=== PATIENT | female | born 1950 | race Caucasian/White ===

== ENCOUNTER 2018-05-18 09:31 | Inpatient (IN) | payer OTHER, BC ==
[2018-05-18] MEDS ORDERED: NS 1,000 ML IV ONE (09:44)
--- NOTE | 2018-05-18 09:49 | EDPHY ---
H & P Time Seen by Provider: 05/18/18 09:38 HPI/ROS: CHIEF COMPLAINT: Syncope HISTORY OF PRESENT ILLNESS: The patient is a 67-year-old female with no significant past medical history who comes to the emergency department after syncopal event. She states that she woke up this morning and had mild low back pain radiating to her left leg. She states that this is not very unusual for her and that she has a history of bulging discs. She eventually got up and took a hot shower. While she was in the shower she began to feel lightheaded. She turned the water off and then woke up lying in the tub. She got out of the tub and then woke up again lying on the ground. She thinks that she fainted twice. She then walked to her bedroom and laid on her bed for about an hour. She continued to feel lightheaded so she walked to her son's room and asked him to call 911. She continued to feel lightheaded while walking. She states that she feels better when lying down. She denies chest pain or shortness of breath. No recent fevers or illness. She reports she has had a dry cough for the last 3 weeks. No heavy bleeding. No diarrhea. No vomiting. She has been eating and drinking normally. She is from [place]. When paramedics arrived her blood pressure was 40 over palp. They gave her 500 cc bolus and it did not improve. It then started an epi drip and her blood pressure rapidly increased to 100/50 which is her baseline. It was then discontinued. She maintains his blood pressure now states that she feels normal. She is currently asymptomatic. she does report frequent episodes of lightheadedness when standing for too long or standing abruptly. Her son states that he has the same. Severity: Severe Modifying factors: Above REVIEW OF SYSTEMS: Constitutional: denies: chills, fever, recent illness, recent injury EENTM: denies: blurred vision, double vision, nose congestion Respiratory: denies: cough, shortness of breath Cardiac: See HPI Gastrointestinal/Abdominal: denies: abdominal pain, diarrhea, nausea, vomiting, blood streaked stools Genitourinary: denies: dysuria, frequency, hematuria, pain Musculoskeletal: denies: joint pain, muscle pain Skin: denies: lesions, rash, jaundice, bruising Neurological: denies: headache, numbness, paresthesia, tingling, dizziness, weakness Hematologic/Lymphatic: denies: blood clots, easy bleeding, easy bruising Immunologic/allergic: denies: HIV/AIDS, transplant 10 systems reviewed and negative except as noted EXAM: GENERAL: Well-appearing, well-nourished and in no acute distress. HEAD: Atraumatic, normocephalic. EYES: Pupils equal round and reactive to light, extraocular movements intact, sclera anicteric, conjunctiva are normal. ENT: TMs normal, nares patent, oropharynx clear without exudates. Moist mucous membranes. NECK: Normal range of motion, supple without lymphadenopathy or JVD. LUNGS: Breath sounds clear to auscultation bilaterally and equal. No wheezes rales or rhonchi. HEART: Regular rate and rhythm without murmurs, rubs or gallops. ABDOMEN: Soft, nontender, normoactive bowel sounds. No guarding, no rebound. No masses appreciated. BACK: No CVA tenderness, no spinal tenderness, step-offs or deformities EXTREMITIES: Normal range of motion, no pitting or edema. No clubbing or cyanosis. NEUROLOGICAL: Cranial nerves II through XII grossly intact. Normal speech, normal gait. 5/5 strength, normal movement in all extremities, normal sensation , normal reflexes PSYCH: Normal mood, normal affect. SKIN: Warm, dry, normal turgor, no visible rashes or lesions. Source: Patient, EMS Exam Limitations: No limitations - Medical/Surgical History Hx Asthma: No Hx Chronic Respiratory Disease: No Hx Diabetes: No Hx Cardiac Disease: No Hx Renal Disease: No Hx Cirrhosis: No Hx Alcoholism: No Hx HIV/AIDS: No Hx Splenectomy or Spleen Trauma: No - Family History Significant Family History: No pertinent family hx - Social History Smoking Status: Never smoked Alcohol Use: Sober Drug Use: None Constitutional: Initial Vital Signs Temperature (C) 36.3 C 05/18/18 09:40 Heart Rate 67 05/18/18 09:40 Respiratory Rate 16 05/18/18 09:40 Blood Pressure 102/64 05/18/18 09:40 O2 Sat (%) 92 05/18/18 09:40 O2 Delivery Mode Room Air Allergies/Adverse Reactions: No Known Allergies Allergy (Verified 05/18/18 10:30) Home Medications: Medication Instructions Recorded Herbals/Supplements -Info Only 1 ea PO DAILY 05/18/18 [place]-3 Fatty Acids [Fish Oil 1000 1,000 mg PO DAILY 05/18/18 mg (*)] Medical Decision Making - Diagnostics EKG Interpretation: An EKG obtained and was read and documented in trace view. Please see trace view for full reading and report. Sinus rhythm, no acute ischemic changes Imaging Results: Imaging Impressions Abdomen/Pelvis CTA 05/18/18 09:45 Impression: 1. Minimal atherosclerotic abdominal aorta without aneurysm or dissection. 2. No abdominal or pelvic bowel obstruction or significant adenopathy. 3. Sigmoid diverticulosis without diverticulitis. Findings and recommendations discussed with Emergency Department physician, Dr. Leon Gipson at 1125 hours on May 18, 2018. Final report concurs with initial preliminary interpretation. Chest/Thorax CTA 05/18/18 09:45 Impression: 1. No aortic aneurysm or dissection. 2. Right middle lobe 4-mm nonspecific noncalcified pulmonary nodule, for which follow-up noncontrast CT chest is recommended in one year. 3. No acute pulmonary disease. [employer] RECOMMENDATIONS For Follow Up and Management of Solid Nodules Smaller Than [address] Low Risk Patients (minimal or absent history of smoking and of other known risk factors) Less than 6 mm ---- no follow up required, unless upper lobes then follow up at 12 months 6-8 mm -------initial follow up CT at 6-12 months, then at 18-24 months if no change >8 mm -------Consider follow up CT at around 3, 9, and 24 months, dynamic contrast-enhanced CT, PET, and/or biopsy. High Risk Patients (history of smoking or of other known risk factors) Less than 6 mm------follow up CT at 12 months; if unchanged, no further follow up 6-8 mm ------ initial follow up CT at 6-12 months, then at 18-24 months if no change >8 mm ------ Consider follow up CT at around 3, 9, and 24 months, dynamic contrast-enhanced CT, PET, and/or biopsy. Note: Nonsolid (groundglass) or partially solid nodules will require a longer follow up to exclude indolent adenocarcinoma. Findings and recommendations discussed with Emergency Department physician, Dr. Leon Gipson at 1130 hours on May 18, 2018. Final report concurs with initial preliminary interpretation. Imaging: Discussed imaging studies w/ call or contact centre team leader Radiologist ED Course/Re-evaluation: I discussed the case with Namita from hospital service who will accept to step- down. CT still pending. Differential Diagnosis: Partial list of the Differential diagnosis considered include but were not limited to; syncope, hypotension, arrhythmia, dissection, aneurysm and although unlikely based on the history and physical exam, I also considered hemorrhage, dehydration, electrolyte abnormality, acute coronary disease. Critical Care Time: Critical care time spent by me, Dr. Gipson exclusive with this patient was 35 minutes, exclusive of the PA time exclusive of procedures. The organ system that was at risk was cardiovascular and I gave IV fluids, consultation and admission, testing to prevent worsening of the patient's condition - Data Points Laboratory Results: Laboratory Results 05/18/18 09:45 05/18/18 09:45 05/18/18 05/18/18 05/18/18 09:55 09:46 09:45 WBC RBC Hgb Hct MCV MCH MCHC RDW Plt Count MPV Neut % (Auto) Lymph % (Auto) [place] % (Auto) Eos % (Auto) Baso % (Auto) Nucleat RBC Rel Count Absolute Neuts (auto) Absolute Lymphs (auto) Absolute Monos (auto) Absolute Eos (auto) Absolute Basos (auto) Absolute Nucleated RBC Immature Gran % Immature Gran # PT 14.0 SEC SEC (12.0-15.0) INR 1.06 (0.83-1.16) APTT 26.3 SEC SEC (23.0-38.0) Sodium 140 mEq/L mEq/L (135-145) Potassium 4.4 mEq/L mEq/L (3.3-5.0) Chloride 107 mEq/L mEq/L (97-110) Carbon Dioxide 22 mEq/l mEq/l (22-31) Anion Gap 11 mEq/L mEq/L (8-16) BUN 21 mg/dL mg/dL (7-23) Creatinine 0.7 mg/dL mg/dL (0.6-1.0) Estimated GFR > 60 Glucose 117 mg/dL H mg/dL (70-100) Calcium 9.3 mg/dL mg/dL (8.5-10.4) POC Troponin I 0.01 ng/mL ng/mL (0.00-0.08) 05/18/18 09:45 WBC 19.33 10^3/uL H 10^3/uL (3.80-9.50) RBC 4.25 10^6/uL 10^6/uL (4.18-5.33) Hgb 12.5 g/dL L g/dL (12.6-16.3) Hct 38.2 % % (38.0-47.0) MCV 89.9 fL fL (81.5-99.8) MCH 29.4 pg pg (27.9-34.1) MCHC 32.7 g/dL g/dL (32.4-36.7) RDW 13.3 % % (11.5-15.2) Plt Count 311 10^3/uL 10^3/uL (150-400) MPV 9.1 fL fL (8.7-11.7) Neut % (Auto) 81.5 % H % (39.3-74.2) Lymph % (Auto) 10.8 % L % (15.0-45.0) Granite % (Auto) 6.6 % % (4.5-13.0) Eos % (Auto) 0.3 % L % (0.6-7.6) Baso % (Auto) 0.3 % % (0.3-1.7) Nucleat RBC Rel Count 0.0 % % (0.0-0.2) Absolute Neuts (auto) 15.76 10^3/uL H 10^3/uL (1.70-6.50) Absolute Lymphs (auto) 2.08 10^3/uL 10^3/uL (1.00-3.00) Absolute Monos (auto) 1.28 10^3/uL H 10^3/uL (0.30-0.80) Absolute Eos (auto) 0.05 10^3/uL 10^3/uL (0.03-0.40) Absolute Basos (auto) 0.06 10^3/uL 10^3/uL (0.02-0.10) Absolute Nucleated RBC 0.00 10^3/uL 10^3/uL (0-0.01) Immature Gran % 0.5 % % (0.0-1.1) Immature Gran # 0.10 10^3/uL 10^3/uL (0.00-0.10) PT INR APTT Sodium Potassium Chloride Carbon Dioxide Anion Gap BUN Creatinine Estimated GFR Glucose Calcium POC Troponin I Medications Given: Sodium Chloride (Ns) 1,000 mls @ 125 mls/hr IV CONT JOSIAH Stop: 11/14/18 11:59 Last Admin: 05/18/18 12:31 Dose: 1,000 mls Discontinued Medications Sodium Chloride (Ns) 1,000 mls @ 0 mls/hr IV EDNOW ONE; Wide Open PRN Reason: Protocol Stop: 05/18/18 09:45 Last Admin: 05/18/18 10:25 Dose: 1,000 mls Point of Care Test Results: Chemistry 05/18/18 09:46 POC Troponin I 0.01 ng/mL ng/mL (0.00-0.08) Departure - Departure Disposition: [facility] Inpatient Acute Clinical Impression: Syncope and collapse Hypotension Qualifiers: Hypotension type: unspecified hypotension type Qualified Code(s): I95.9 - Hypotension, unspecified Condition: Fair
[2018-05-18 09:51] LABS: PLATELET COUNT 311 10^3/uL (150-400)
[2018-05-18 10:11] LABS: INR 1.06 (0.83-1.16)
[2018-05-18] MEDS ORDERED: IOPAMIDOL (ISOVUE 370) 100 ML BTL IV ONE (10:46)
[2018-05-18] MEDS ORDERED: NS 1,000 ML IV SCH (12:00)
--- NOTE | 2018-05-18 12:20 | CPEKG ---
Test Reason : OPEN Blood Pressure : / mmHG Vent. Rate : 068 BPM Atrial Rate : 069 BPM P-R Int : 151 ms QRS Dur : 085 ms QT Int : 410 ms P-R-T Axes : 069 045 044 degrees QTc Int : 437 ms Sinus rhythm Confirmed by Leon Gipson ([id number]) on 05/18/2018 12:19:56 PM Referred By: Confirmed By:Leon Gipson
--- NOTE | 2018-05-18 14:10 | PDGENHP ---
History and Physical - Chief Complaint syncope - History of Present Illness 67 yo female who is otherwise healthy presents to ED after 2 syncopal events at home. [place] from [place] and arrived one month ago. She awoke this morning with an ache in her low back. This has happened before and she tried some positional changes. She went to the bathroom and felt dizzy. She also noticed her left leg was quite swollen and painful, worse with ambulation. While in the shower, she felt so lightheaded, she realized she was going to pass out and turned the water off while starting to lower herself to the ground. She tried to step out of the shower, but woke up on the floor of the bathroom. She again got up, walked down the saxena, still dizzy, made it to her bed. Resting in bed, she was not dizzy and had no chest pain or shortness of breath. She eventually asked her son to call EMS, who found her systolic blood pressure to be in the 40's. She was started on an Epi drip and brought to the ED, where she was easily titrated off Epi and remained normotensive after a fluid bolus. She was mildly orthostatic in the ED. CTA was negative for PE or dissection. She has no h/o malignancy and no family history of clotting disorder. She was admitted for further management. On the PCU, u/s of LLE revealed extensive DVT into the iliac veins and pelvis. IR is consulted and she will undergo thrombolysis and then transfer to the ICU. History Information - Allergies/Home Medication List Allergies/Adverse Reactions: No Known Allergies Allergy (Verified 05/18/18 10:30) Home Medications: Herbals/Supplements -Info Only 1 ea PO DAILY 05/18/18 [Last Taken Unknown] [place]-3 Fatty Acids [Fish Oil 1000 mg (*)] 1,000 mg PO DAILY 05/18/18 [Last Taken Unknown] I have personally reviewed and updated: family history, medical history, social history, surgical history - Past Medical History no pertinent PMH - Surgical History Reports: no pertinent surgical hx - Family History Positive for: non-pertinent - Social History Smoking Status: Never smoked Alcohol Use: Sober Drug Use: None Additional social history: Lives in [place], visiting her 3 sons who live locally Review of Systems Review of Systems: ROS: 10pt was reviewed & negative except for what was stated in HPI & below Physical Exam Physical Exam: Temp Pulse Resp BP Pulse Ox 36.7 C 67 16 110/65 97 05/18/18 13:12 05/18/18 13:12 05/18/18 13:12 05/18/18 13:12 05/18/18 13:12 Constitutional: no apparent distress Eyes: PERRL Ears, Nose, Mouth, Throat: moist mucous membranes Cardiovascular: regular rate and rhythym, no murmur, rub, or gallop Respiratory: no respiratory distress, clear to auscultation Gastrointestinal: normoactive bowel sounds, soft, non-tender abdomen Skin: warm Musculoskeletal: other (LLE with extensive edema, no erythema) Neurologic: AAOx3 Psychiatric: interacting appropriately Lab Data & Imaging Review 05/18/18 09:45 05/18/18 09:45 WBC 19.33 10^3/uL (3.80-9.50) H 05/18/18 09:45 RBC 4.25 10^6/uL (4.18-5.33) 05/18/18 09:45 Hgb 12.5 g/dL (12.6-16.3) L 05/18/18 09:45 Hct 38.2 % (38.0-47.0) 05/18/18 09:45 MCV 89.9 fL (81.5-99.8) 05/18/18 09:45 MCH 29.4 pg (27.9-34.1) 05/18/18 09:45 MCHC 32.7 g/dL (32.4-36.7) 05/18/18 09:45 RDW 13.3 % (11.5-15.2) 05/18/18 09:45 Plt Count 311 10^3/uL (150-400) 05/18/18 09:45 MPV 9.1 fL (8.7-11.7) 05/18/18 09:45 Neut % (Auto) 81.5 % (39.3-74.2) H 05/18/18 09:45 Lymph % (Auto) 10.8 % (15.0-45.0) L 05/18/18 09:45 [place] % (Auto) 6.6 % (4.5-13.0) 05/18/18 09:45 Eos % (Auto) 0.3 % (0.6-7.6) L 05/18/18 09:45 Baso % (Auto) 0.3 % (0.3-1.7) 05/18/18 09:45 Nucleat RBC Rel Count 0.0 % (0.0-0.2) 05/18/18 09:45 Absolute Neuts (auto) 15.76 10^3/uL (1.70-6.50) H 05/18/18 09:45 Absolute Lymphs (auto) 2.08 10^3/uL (1.00-3.00) 05/18/18 09:45 Absolute Monos (auto) 1.28 10^3/uL (0.30-0.80) H 05/18/18 09:45 Absolute Eos (auto) 0.05 10^3/uL (0.03-0.40) 05/18/18 09:45 Absolute Basos (auto) 0.06 10^3/uL (0.02-0.10) 05/18/18 09:45 Absolute Nucleated RBC 0.00 10^3/uL (0-0.01) 05/18/18 09:45 Immature Gran % 0.5 % (0.0-1.1) 05/18/18 09:45 Immature Gran # 0.10 10^3/uL (0.00-0.10) 05/18/18 09:45 PT 14.0 SEC (12.0-15.0) 05/18/18 09:55 INR 1.06 (0.83-1.16) 05/18/18 09:55 APTT 26.3 SEC (23.0-38.0) 05/18/18 09:55 Sodium 140 mEq/L (135-145) 05/18/18 09:45 Potassium 4.4 mEq/L (3.3-5.0) 05/18/18 09:45 Chloride 107 mEq/L (97-110) 05/18/18 09:45 Carbon Dioxide 22 mEq/l (22-31) 05/18/18 09:45 Anion Gap 11 mEq/L (8-16) 05/18/18 09:45 BUN 21 mg/dL (7-23) 05/18/18 09:45 Creatinine 0.7 mg/dL (0.6-1.0) 05/18/18 09:45 Estimated GFR > 60 05/18/18 09:45 Glucose 117 mg/dL (70-100) H 05/18/18 09:45 Calcium 9.3 mg/dL (8.5-10.4) 05/18/18 09:45 POC Troponin I 0.01 ng/mL (0.00-0.08) 05/18/18 09:46 Urine Color YELLOW 05/18/18 13:00 Urine Appearance CLEAR 05/18/18 13:00 Urine pH 5.0 (5.0-7.5) 05/18/18 13:00 Ur Specific [place] > 1.060 (1.002-1.030) H 05/18/18 13:00 Urine Protein NEGATIVE (NEGATIVE) 05/18/18 13:00 Urine Ketones 1+ (NEGATIVE) H 05/18/18 13:00 Urine Blood 1+ (NEGATIVE) H 05/18/18 13:00 Urine Nitrate NEGATIVE (NEGATIVE) 05/18/18 13:00 Urine Bilirubin NEGATIVE (NEGATIVE) 05/18/18 13:00 Urine Urobilinogen NEGATIVE EU (0.2-1.0) 05/18/18 13:00 Ur Leukocyte Esterase TRACE (NEGATIVE) H 05/18/18 13:00 Urine RBC 5-10 /hpf (0-3) H 05/18/18 13:00 Urine WBC 1-3 /hpf (0-3) 05/18/18 13:00 Ur Epithelial Cells TRACE /lpf (NONE-1+) 05/18/18 13:00 Urine Mucus 1+ /lpf (NONE-1+) 05/18/18 13:00 Ur Culture Indicated? INDICATED (NI) H 05/18/18 13:00 Urine Glucose NEGATIVE (NEGATIVE) 05/18/18 13:00 Assessment & Plan Assessment: LLE DVT - extensive clot burden into iliac vein with significant swelling and pain. Although she traveled one month ago, seems unlikely that was provoking event. No h/o malignancy or family h/o clotting disorders -IR consulted for thrombolysis, will transfer to ICU post-procedure -heparin drip per IR -needs outpt cancer screening (pap, mammo, c-scope screening) -send hypercoag labs: apla, fvl, prothrombin gene mutation Syncope - Possible vagal event with above issue or altered cardiovascular dynamic with decreased venous return. She was orthostatic in the ED, s/p NS bolus with improvement. CTA neg for PE. No carotid bruits detected. Trop neg , EKG non-ischemic. -monitor on telemetry -check echo -consider outpatient cardiac event monitor, though above issue is likely cause of syncope Hypotension - Again suspect vagal mediated. She was orthostatic positive in the ED with specific gravity of >1.060 on her UA which suggests volume depletion. However, history is not consistent with poor oral intake. No PE on CTA. Leukocytosis is noted, though there is no obvious source of infection on CT chest/abd/pelvis, UA relatively bland, no [employer] ROOM [employer]ENDANT symptoms. BP has normalized with NS bolus. -send blood cultures -check am cortisol -cont ivf's, recheck orthostatics in am -check echo as above Leukocytosis - unclear if this is a stress response, no source of infection as above. -recheck in am -defer atbx without obvious infectious source and monitor closely -if she fevers, would check lactate and start empiric atbx Full code Dispo - inpt for DVT management including intervention
[2018-05-18] MEDS: ACETAMINOPHEN 325 MG TAB PO PRN (15:50)
[2018-05-18] MEDS ORDERED: MIDAZOLAM 2 MG/2 ML VIAL IVP PRN (16:19)
[2018-05-18] MEDS ORDERED: NALOXONE HCL 0.4 MG/ML INJ IVP PRN (16:19)
[2018-05-18] MEDS ORDERED: MEPERIDINE 25 MG/ML SYR IVP PRN (16:19)
[2018-05-18] MEDS ORDERED: ALTEPLASE 2 MG VIAL IVP PRN (16:19)
[2018-05-18] MEDS ORDERED: GLUCAGON HCL 1 MG VIAL IVP PRN (16:19)
[2018-05-18] MEDS ORDERED: PROTAMINE SULFATE 50 MG/5 ML VIAL IVP PRN (16:19)
[2018-05-18] MEDS ORDERED: HEPARIN 10,000 UNIT/10 ML MDV (1,000 UNIT/ML) IVP PRN (16:19)
[2018-05-18] MEDS ORDERED: FLUMAZENIL 0.5 MG/5 ML MDV IVP PRN (16:19)
[2018-05-18] MEDS ORDERED: fentaNYL 100 MCG/2 ML INJ IVP PRN (16:19)
--- NOTE | 2018-05-18 16:35 | ECHO ---
[email or web address] [address] [address] Main: [phone] Fax: Transthoracic Echocardiogram Name: DARIA DICKENS MR#: [id number] Study Date: 05/18/2018 Study Time: 03:16 PM Date of : 1950 Age: 67 year(s) Height: 165.1 cm (65 in.) Weight: 63.5 kg (140 lb.) BSA: 1.7 m2 Gender: Female Examination: Echo Indication: Cardiac: syncope Image Quality: Adequate Contrast: Requested by: Janelle Aguilar BP: 110 mmHg/65 mmHg Heart Rate: Rhythm: Indication: Cardiac: syncope Procedure Staff Pupil Personnel Worker: Deb Curry RD Reading Physician: Marcelo Donis MD Requesting Provider: Conclusions: Normal global systolic LV function. EF is 64 %. Mild mitral valve regurgitation is present. Mild aortic valve regurgitation is present. Trivial tricuspid valve regurgitation. Right ventricular systolic pressure measures 30mmHg. Measurements: Chambers Valvular Assessment AV/MV Valvular Assessment TV/PV Normal Normal Normal Name Value Range Name Value Range Name Value Range Ao Addis (2D): 2.8 cm (1.4 cm-2.6 AV Vmax: 1.73 m/s (1 m/s-1.7 TR Vmax: 2.48 mm/s ( - ) cm) m/s) TR PGmax: 25 mmHg ( - ) IVSd (2D): 0.8 cm (0.6 cm-1.1 AV maxP mmHg ( - ) syst. PAP: 30 mmHg ( - ) cm) AV meanP mmHg ( - ) PV Vmax: 1.07 m/s (0.6 m/s-0.9 LVDd (2D): 4.0 cm (3.9 cm-5.3 MOIZ (VTI): 2.3 cm ( - ) m/s) cm) MV E Vmax: 0.61 m/s ( - ) PV PGmax: 5 mmHg ( - ) LVDs (2D): 2.5 cm (2.1 cm-4 MV A Vmax: 0.80 m/s ( - ) cm) MV E/A: 0.76 ( - ) LVPWd (2D): 0.8 cm ( - ) MV PHT: 0.084 s ( - ) LVOTd 2.0 cm 2.0 cm mm MVA (PHT): 2.6 s ( - ) LVEF (BP): 64 % (>=55 %) RVDd(2D): 3.1 cm (1.9 cm-3.8 cmmm) Continued Measurements: Chambers Valvular Assessment AV/MV Valvular Assessment TV/PV Name Value Name Value Name Value LADs: 2.7 cm MV DecTime: 268 m/s CVP (est.): 5 mmHg Patient: DARIA DICKENS Study Date: 05/18/2018 Page 1 of 2 03:16 PM LADs Lon.5 cm MV E' Septal: 0.08 m/s LA Area: 13.8 cm2 MV E/E' Septal: 7.50 LA Volume: 35 ml MV E/E' Lateral: 4.50 LA Volume Index: 20.6 ml/m2 RA Area: 11.6 cm2 Additional Vessels Name Value Ao Ascendin.8 cm Inferior Vena Cava: 1.0 cm Findings: Left Ventricle: Normal size left ventricle. No LV hypertrophy. Normal global systolic LV function. EF is 64 %. No regional wall motion abnormality. Normal diastolic LV function. Right Ventricle: Normal size right ventricle. Normal RV function. Left Atrium: The left atrium is normal in size. Right Atrium: The right atrium is normal in size. Mitral Valve: The mitral valve is normal in appearance and function. Mild mitral valve regurgitation is present. Aortic Valve: The aortic valve is tri-leaflet. Mild aortic valve regurgitation is present. No aortic valve stenosis is present. Tricuspid Valve: The tricuspid valve is normal in appearance and function. Trivial tricuspid valve regurgitation. The pulmonary artery pressure is normal. Right ventricular systolic pressure measures 30mmHg. Pulmonic Valve: The pulmonic valve is normal in appearance and function. There is no pulmonic regurgitation seen. Aorta: The aorta is normal. Normal size aortic root measuring 2.8 cm. Normal size ascending aorta measuring 2.8 cm. IVC: The IVC is normal sized. Pericardium: No pericardial effusion. No pleural effusion. (No Signature Object) Patient: DARIA DICKENS Study Date: 05/18/2018 Page 2 of 2 03:16 PM [id number]
--- NOTE | 2018-05-18 17:13 | PDHPUP ---
History & Physical Update H&P update statement: This history and physical update is based on an assessment of the patient which was completed after admission or registration (within 24 hours), but prior to the surgery/procedure. Massive iliofemoral DVT; Plan for catheter directed thrombolysis. H&P update: H&P reviewed & patient examined, no change in patient's condition since H&P completed
--- NOTE | 2018-05-18 17:14 | PDPROPOC ---
Sedation Plan of Care Sedation Plan of Care: vital signs stable, mental status noted, patient educated of risks, benefits, alternatives, patient can tolerate sedation ASA Classification: ASA 3 Planned drugs: fentanyl, midazolam Mallampati Score: Class 1 Mallampati Reference Image: Patient passed 3-3-2 rule?: Yes
[2018-05-18] MEDS ORDERED: ALTEPLASE 2 MG VIAL ONE (17:41)
[2018-05-18 17:50] LABS: INR 1.23 (0.83-1.16); PROTIME(PATIENT) 15.7 SEC (12.0-15.0)
[2018-05-18] MEDS ORDERED: HEPARIN/DEXTROSE 25,000 UNIT/500 ML BAG ONE (17:50)
[2018-05-18] MEDS ORDERED: HEPARIN/DEXTROSE 500 ML IV SCH (18:00)
[2018-05-18] MEDS ORDERED: ALTEPLASE 5 MG in NS 100 ML IV ONE (18:00)
--- NOTE | 2018-05-18 18:00 | PDRADPN ---
Radiology Procedure Note Date of Procedure: 05/18/18 Radiologist: Ray Cordova Anesthesia: IV Sedation Pre-op Diagnosis: Iliofemoral DVT Post-op Diagnosis: Iliofemoral DVT Indication: Massive DVT Procedure: Catheter directed thromobolysis Finding(s): Occlusive clot popliteal/femoral/CFV/external iliac/common iliac veins. Successful initiation of catheter directed thrombolysis. Inf/Abcess present in the surg proc area at time of surgery?: No
[2018-05-18] MEDS ORDERED: IOPAMIDOL (ISOVUE-300) 100 ML BTL ONE (18:39)
[2018-05-18 20:48] LABS: PLATELET COUNT 191 10^3/uL (150-400)
[2018-05-18] MEDS: ALTEPLASE 5 MG in NS 100 ML IV SCH (21:56)
[2018-05-19] MEDS: ACETAMINOPHEN 325 MG TAB PO PRN ×3 (00:54→20:57)
[2018-05-19] MEDS: ALTEPLASE 5 MG in NS 100 ML IV SCH ×2 (02:54→10:08)
[2018-05-19 04:24] LABS: PLATELET COUNT 182 10^3/uL (150-400)
--- NOTE | 2018-05-19 09:16 | SOAPPROG ---
SOAP Progress Note Assessment/Plan: Assessment/Plan: 67 yo F with massive iliofemoral DVT POD #1 s/p initiation of catheter directed thrombolysis. No signs/symptoms of hemorrhage. Fibrinogen < 100, tPA reduced to 0.5mh/hr. Heparin per protocol to remain subtherapeutic. Plan for reimaging today to evaluate extent of residual clot. 05/19/18 09:13 Subjective: Denies nausea/headache/severe pain. C/O mild pain in back resoved with tylenol. Continued swelling LLE without significant pain, Denies nosebleeds/ oozing from catheter site. Objective: Vital Signs Temp Pulse Resp BP Pulse Ox 36.9 C 77 17 110/52 L 95 05/18/18 20:00 05/19/18 09:00 05/19/18 09:00 05/19/18 09:00 05/19/18 09:00 Laboratory Results 05/19/18 04:05 05/18/18 19:55 05/18/18 05/19/18 05/20/18 05:59 05:59 05:59 Intake Total 1399 Output Total 700 700 Balance 699 -700 PT 15.7 SEC (12.0-15.0) H 05/18/18 16:25 INR 1.23 (0.83-1.16) H 05/18/18 16:25 Access site. Dressing C/D/I. No hematoma. ICD10 Worksheet Patient Problems: Problems Problem Status Onset Hypotension Acute Syncope and collapse Acute
[2018-05-19] MEDS ORDERED: CYCLOBENZAPRINE 10 MG TAB PO PRN (09:51)
[2018-05-19] MEDS ORDERED: HYDROCODONE/APAP 5/325 TAB PO PRN (09:51)
--- NOTE | 2018-05-19 09:54 | HOSPPROG ---
Hospitalist Progress Note Assessment/Plan: LLE DVT - extensive clot burden into iliac vein with significant swelling and pain. S/P thrombolysis per IR last night. No h/o malignancy or family h/o clotting disorders. She is up to date on cancer screening including pap, mammogram and c-scope (due for this in 1 yr) -repeat venogram today per IR -heparin drip per IR -anticipate transition to eliquis at d/c -hypercoag labs pending: apla, fvl, prothrombin gene mutation -recommended outpt f/u with hematology regarding duration of anti- coagulation (6 months vs lifelong given massive 1st time clot) Syncope - Suspect vagal event with above issue. She was orthostatic in the ED, s/p NS bolus with improvement. CTA neg for PE. No carotid bruits detected. Trop neg, EKG non-ischemic. -monitor on telemetry -echo showed mild MR, nl LV function -consider outpatient cardiac event monitor, though above issue is likely cause of syncope Hypotension - SBP 40's by EMS, was given epi in the field, though BP normalized off epi since here. Again suspect vagal mediated. She was orthostatic positive in the ED with specific gravity of >1.060 on her UA which suggests volume depletion. However, history is not consistent with poor oral intake. BP has normalized with NS bolus. -BCx's pending -am cortisol 9 -cont ivf's, recheck orthostatics in am when able to ambulate (currently on bedrest) -echo ok Leukocytosis - suspect stress response, trending down, no atbx Back pain - suspect referred pain from iliac vein / pelvis DVT -prn vicodin, flexeril, heating pad Full code Dispo - inpt / ICU for DVT management including intervention Subjective: Pt feels well. LLE still swollen and tender. No fevers, chills, CP or SOB. On bedrest in ICU after thrombolysis, on heparin drip. No complaints Objective: Vital Signs Temp Pulse Resp BP Pulse Ox 36.9 C 77 17 110/52 L 95 05/18/18 20:00 05/19/18 09:00 05/19/18 09:00 05/19/18 09:00 05/19/18 09:00 Laboratory Results 05/19/18 04:05 05/18/18 19:55 10/05/2605/19/18 05/20/18 05:59 05:59 05:59 Intake Total 1399 Output Total 700 700 Balance 699 -700 PT 15.7 SEC (12.0-15.0) H 05/18/18 16:25 INR 1.23 (0.83-1.16) H 05/18/18 16:25 - Physical Exam Constitutional: no apparent distress Eyes: PERRL Ears, Nose, Mouth, Throat: moist mucous membranes Cardiovascular: regular rate and rhythym Respiratory: no respiratory distress, clear to auscultation Gastrointestinal: normoactive bowel sounds, soft, non-tender abdomen Skin: warm Musculoskeletal: full muscle strength, other (LLE persistent edema to hip) Neurologic: AAOx3 Psychiatric: interacting appropriately ICD10 Worksheet Patient Problems: Problems Problem Status Onset Hypotension Acute Syncope and collapse Acute
--- NOTE | 2018-05-19 11:02 | PDMN ---
Medical Necessity Medical necessity: Change to IP, as of 05/18/18, per & MCG M-350; los >2 mn for ongoing management of LLE DVT s/p thrombolysis; requiring close ICU monitoring, repeat venogram, Heparin drip & IVFs
[2018-05-19] MEDS ORDERED: FLUMAZENIL 0.5 MG/5 ML MDV IVP ONE (14:36)
[2018-05-19] MEDS ORDERED: NALOXONE HCL 0.4 MG/ML INJ ONE (14:36)
[2018-05-19] MEDS ORDERED: MIDAZOLAM 2 MG/2 ML VIAL ONE (14:37)
[2018-05-19] MEDS ORDERED: fentaNYL 100 MCG/2 ML INJ ONE (14:37)
[2018-05-19] MEDS ORDERED: MEPERIDINE 25 MG/ML SYR IVP PRN (15:13)
[2018-05-19] MEDS ORDERED: MIDAZOLAM 2 MG/2 ML VIAL IVP PRN (15:13)
[2018-05-19] MEDS ORDERED: fentaNYL 100 MCG/2 ML INJ IVP PRN (15:13)
[2018-05-19] MEDS ORDERED: FLUMAZENIL 0.5 MG/5 ML MDV IVP PRN (15:13)
[2018-05-19] MEDS ORDERED: NALOXONE HCL 0.4 MG/ML INJ IVP PRN (15:13)
[2018-05-19] MEDS ORDERED: NS 1,000 ML IV SCH (15:15)
--- NOTE | 2018-05-19 15:18 | ASMTCASEMG ---
Living Arrangements What is your living Answers: With Spouse arrangement? Who do you live with? Type Of Residence What kind of residence do Answers: House you live in? Discharge Plan Comments Coordination Status Comments Notes: Patient is a 67yo female from [place] who came to [facility] ED after 2 syncopal events. (family goes between [place] and [place]) Patient was found to have an extensive clot burden into iliac vein with significant swelling and pain. Patient has been admitted for LLE DVT, syncope, hypotension and leukocytosis. No therapies ordered at this time. D/C plan TBD. CM will follow. Date Signed: 05/19/2018 03:18 PM Electronically Signed By:Fabiola Oliveira LCSW
[2018-05-19] MEDS ORDERED: IOPAMIDOL (ISOVUE-300) 100 ML BTL ONE ×2 (15:23→15:34)
--- NOTE | 2018-05-19 16:01 | GCON ---
PULMONARY/CRITICAL CARE CONSULTATION. DATE OF CONSULTATION: 05/19/2018 REFERRING PHYSICIAN: Janelle Aguilar MD REASON FOR REFERRAL: Evaluation and management of DVT and syncope. HISTORY: This is a 67-year-old woman who was admitted yesterday after having 2 syncopal events at [facility]. She is visiting from [place], arriving here about a month ago. She woke up yesterday morning with an ache in her low back. She thought it might be due to sciatica. She went to the bathroom an d felt dizzy and noted that her left leg was quite swollen and painful, which worsened with ambulatio n. She felt quite lightheaded while in the shower and felt she was about to pass out. She woke up o n the floor of the bathroom, walked down the saxena, and asked her son to call EMS. They found that he r blood pressure was in the 40s. She was started on epinephrine drip and brought to the emergency de partment where she was quickly titrated off epinephrine and remained normotensive after getting fluid bolus. A lower extremity ultrasound demonstrated extensive DVT. IR was consulted and she started t hrombolysis. Catheter for tPA and heparin is still in her left popliteal fossa. She reports that he r back still aches somewhat. She denies any more syncope or lightheadedness. Her leg is swollen but is not uncomfortable. PAST MEDICAL HISTORY: Negative. MEDICATIONS: None. ALLERGIES: None. SOCIAL HISTORY: The patient lives in [place] and is visiting here. She has never smoked and does not drink. REVIEW OF SYSTEMS: A 10-point review of systems adds nothing to the history of present illness. PHYSICAL EXAMINATION: GENERAL: The patient is awake, alert, in no acute distress. VITAL SIGNS: Bloo d pressure is 110/58 with a heart rate of 77. She is afebrile. Oxygen saturations are 94% on room a ir. HEENT: Normocephalic and atraumatic. No icterus. NECK: No JVD. Trachea is midline. CHEST: Clear to auscultation. CARDIAC: Regular rate and rhythm without murmur. ABDOMEN: Soft, nontender. Bowel sounds are present. EXTREMITIES: No clubbing or cyanosis. She has marked increase in the si ze of her left leg with some edema. She has good pulses distally and her leg temperature is similar to her right leg. NEURO: The patient is awake and alert. She has no gross motor or sensory deficit s. LABORATORY: A white blood count is 12.2 with a hemoglobin 10.5. Chemistry group is unremarkable. F ibrinogen level was 77 early this morning, down from 303 at admission. A hypercoagulability panel is pending. A CT scan of the chest is negative for pulmonary embolism. Images reviewed by me. ASSESSMENT: 1. Extensive left deep vein thrombosis. The patient is undergoing thrombolysis directed by [facility]. She is due to return to the interventional suite in an hour or so to have a repeat venogram. May be a bit limited in her ability to do further thrombolysis given the reduced fibrinoge n from this morning. 2. Syncope. The patient does not have any pulmonary embolus or any other obvious cause for syncope with the exception of possibly a vasovagal episode. She could also have some reduced venous return f rom her leg, which could cause intravascular depletion. 3. Hypotension. This is improved with IV fluids. RECOMMENDATIONS: 1. Return to the interventional suite for repeat venogram and consider further therapy for DVT. 2. Await results of hypercoagulability panel. 3. If patient is done with thrombolysis she could potentially be transferred out of the intensive ca re unit. /[id number]/MODL
--- NOTE | 2018-05-19 16:37 | PDRADPN ---
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 Following stent placement, wide patency of vessel with resolution of collaterals. Inf/Abcess present in the surg proc area at time of surgery?: No
[2018-05-19] MEDS: ENOXAPARIN 80 MG/0.8 ML SYR SC SCH (19:22)
[2018-05-20] MEDS ORDERED: COSYNTROPIN 0.25 MG/2 ML SYRINGE IVP ONE ×2 (06:00→06:33)
[2018-05-20] MEDS: ENOXAPARIN 80 MG/0.8 ML SYR SC SCH ×2 (06:16→17:50)
[2018-05-20] MEDS: ACETAMINOPHEN 325 MG TAB PO PRN (06:21)
[2018-05-20] MEDS ORDERED: NS 1,000 ML IV ONE (06:36)
--- NOTE | 2018-05-20 09:00 | HOSPPROG ---
Hospitalist Progress Note Assessment/Plan: LLE DVT - extensive clot burden into iliac vein with significant swelling and pain. 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 No h/o malignancy or family h/o clotting disorders. She is up to date on cancer screening including pap, mammogram and c-scope -Cont Lovenox 1 mg/kg bid -anticipate transition to eliquis at d/c -hypercoag labs pending: apla neg, fvl, prothrombin gene mutation ( anticipate neg w/u as etiology found to be May Thurner) -discussed likely 6 months tx Syncope - Suspect vagal event related to above. She was orthostatic in the ED, s/p NS bolus. CTA neg for PE. No carotid bruits detected. Trop neg, EKG non- ischemic. Orthostatics again positive last night. -cont to monitor on telemetry -echo showed mild MR, nl LV function -consider outpatient cardiac event monitor, though above issue is likely cause of syncope Hypotension - SBP 40's by EMS, was given epi in the field, though BP normalized off epi since here. Again suspect vagally mediated. She continues to be orthostatic as of last night. AM cortisol 9 yest. -cosyntropin stim test this am -NS bolus this am and recheck orthostatics -cont ivf's -echo ok Leukocytosis - suspect stress response, trended down, no atbx Anemia - hgb down 3 points since admission, could be some dilutional component. No e/o active bleeding -hemoccult stool -cont to trend Back pain - suspect referred pain from iliac vein / pelvis DVT, resolved today -prn vicodin, flexeril, heating pad Full code Dispo - cont inpt, possible d/c tomorrow if orthostasis is resolved and she is able to safely ambulate Subjective: Pt feels better. She was orthostatic again last night, first time she was up since thrombolysis. Up to commode a couple times since and felt less dizzy. No CP, SOB. No melena or BRBPR. No fevers/chills. Objective: Vital Signs Temp Pulse Resp BP Pulse Ox 36.6 C 66 16 108/61 98 05/20/18 07:48 05/20/18 07:48 05/20/18 07:48 05/20/18 07:48 05/20/18 07:48 Laboratory Results 05/20/18 03:46 05/18/18 19:55 05/19/18 05/20/18 05/21/18 05:59 05:59 05:59 Intake Total 1249 845 Output Total 292 046 2706 Balance 549 145 -1000 PT 15.7 SEC (12.0-15.0) H 05/18/18 16:25 INR 1.23 (0.83-1.16) H 05/18/18 16:25 - Physical Exam Constitutional: no apparent distress Eyes: PERRL Ears, Nose, Mouth, Throat: moist mucous membranes Cardiovascular: regular rate and rhythym Respiratory: no respiratory distress, clear to auscultation Gastrointestinal: normoactive bowel sounds, soft, non-tender abdomen Skin: warm Musculoskeletal: full muscle strength, other (LLE swelling is a bit improved) Neurologic: AAOx3 Psychiatric: interacting appropriately ICD10 Worksheet Patient Problems: Problems Problem Status Onset Hypotension Acute Syncope and collapse Acute
--- NOTE | 2018-05-20 11:44 | ASMTCMCOM ---
CM Note CM Note Notes: Pts case discussed in tx rounds. Pt will most likely d/c independent tomorrow. No needs at this time. Pt has a supportive family. CM available for changes. Plan: Independent Date Signed: 05/20/2018 11:44 AM Electronically Signed By:ABDULAZIZ Wade
[2018-05-21] MEDS: ENOXAPARIN 80 MG/0.8 ML SYR SC SCH ×2 (05:48→17:14)
[2018-05-21 11:57] VITALS: BP 109/62
== END 2018-05-21 17:34 | disposition home or self-care (01) | DRG 254 ==
LOC: F2W 12:10 → F2N 18:15 → OBSVTOIN 18:26 → F2W 05-19 20:44
PROVIDERS: ADMIT Hospitalist; ATTEND Hospitalist
PROC: 067D3DZ Dilation of Left Common Iliac Vein with Intraluminal Device, Percutaneous Approach (ICD-10-PCS; principal; 2018-05-18)
PROC: 3E03317 Introduction of Other Thrombolytic into Peripheral Vein, Percutaneous Approach (ICD-10-PCS; principal; 2018-05-18)
DX: I82.422 Acute embolism and thrombosis of left iliac vein (principal); I95.1 Orthostatic hypotension
CPT/HCPCS: 84484-PO; 86147-90; 92523-GN; C1725; C1757; C1758; C1769; C1876; C1894; C2628; G9165-GN-CH; G9166-GN-CH; G9167-GN-CH; J0834; J1644; J1650; J2250; J2310; J2997; J3010; Q9967